=== PATIENT | male | born 1930 | race Caucasian/White ===

== ENCOUNTER 2016-09-01 04:06 | Emergency (ER) | payer MEDICARE, BC, OTHER ==
[~2016-09-01] VITALS: Ht 172.7 cm; Wt 73.5 kg
[~2016-09-01 04:06] MED LIST: AMLO1TAB PO; ASPI-482 PO; EZET10TA3 PO; OMEG1CAP2 PO; diovan PO
[2016-09-01 04:42] LABS: HEMOGLOBIN ISTAT 13.9 gm/dL; POTASSIUM ISTAT 3.8 mmol/L (3.5-5.0)
--- NOTE | 2016-09-01 04:52 | ED.ADGEN ---
Past History Past Medical History: A-Fib, Angina, High Cholesterol, Hypertension, Other Past Surgical History: Appendectomy, Other Smoking: Non-smoker Alcohol Use: Heavy Additional Alcohol Information: Daily wine and Jennifer Drug Use: None Adult General HPI HPI Patient is a 85 year old male with h/o afib s/p ablation who presents complaining of a "dull" chest pain that occurred more than 3 hours prior to arrival and lasted approx 30 min while undergoing an outpt sleep study. Pain resolved on its own. Denies any associated symptoms such as diaphoresis, dyspnea , n/v. Negative stress test in the past at an unknown date. Review of Systems Review of Systems Constitutional: Denies fever or chills [] Eyes: Denies change in visual acuity, redness, or eye pain [] HENT: Denies nasal congestion or sore throat [] Respiratory: Denies cough or shortness of breath [] Cardiovascular: No additional information not addressed in HPI [] GI: Denies abdominal pain, nausea, vomiting, bloody stools or diarrhea [] : Denies dysuria or hematuria [] Musculoskeletal: Denies back pain or joint pain [] Integument: Denies rash or skin lesions [] Neurologic: Denies headache, focal weakness or sensory changes [] Endocrine: Denies polyuria or polydipsia [] Allergies Allergies Allergies Coded Allergies Type Severity Reaction Last Updated Verified No Known Drug Allergies 06/15/13 No Physical Exam Physical Exam Constitutional: Well developed, well nourished, no acute distress, non-toxic appearance. [] HENT: Normocephalic, atraumatic, bilateral external ears normal, oropharynx moist, no oral exudates, nose normal. [] Eyes: PERRLA, EOMI, conjunctiva normal, no discharge. [] Neck: Normal range of motion, no tenderness, supple, no stridor. [] Cardiovascular:Heart rate regular rhythm, no murmur [] Lungs & Thorax: Bilateral breath sounds clear to auscultation [] Abdomen: Bowel sounds normal, soft, no tenderness, no masses, no pulsatile masses. [] Skin: Warm, dry, no erythema, no rash. [] Back: No tenderness, no CVA tenderness. [] Extremities: No tenderness, no cyanosis, no clubbing, ROM intact, no edema. [] Neurologic: Alert and oriented X 3, normal motor function, normal sensory function, no focal deficits noted. [] Psychologic: Affect normal, judgement normal, mood normal. [] Current Patient Data Vital Signs Vital Signs Date Time Temp Pulse Resp B/P Pulse Ox O2 Delivery O2 Flow Rate FiO2 09/01/16 05:25 87 16 130/70 94 Room Air 09/01/16 04:10 97.6 Lab Results Laboratory Tests Test 09/01/16 04:18 09/01/16 04:39 09/01/16 05:43 Prothrombin Time 10.7SEC (9.4-11.4) Prothrombin Time INR 1.0 (0.9-1.1) PTT 26SEC (23-33) POC Hemoglobin 13.9gm/dL POC Hematocrit 41% POC Sodium 138mmol/L (135-145) POC Potassium 3.8mmol/L (3.5-5.0) POC Chloride 101mmol/L (98-110) POC Total CO2 21mmol/L (23-32) L Anion Gap 21mmol/L (6-14) H POC Blood Urea Nitrogen 21mg/dL (8-26) POC Creatinine 1.2mg/dL (0.5-1.4) Glucose Level 97mg/dL (60-99) POC Ionized Calcium (Kristina) 1.15mmol/L (1.13-1.32) POC Troponin I 0.01ng/ml (<0.08) EKG EKG EKG interpreted by me, a regular rhythm, 100 bpm, no P-wave, no ST segment elevation, normal axis. [] Radiology/Procedures Radiology/Procedures Chest x-ray interpreted by me, no acute cardiopulmonary process. [] Course & Med Decision Making Course & Med Decision Making Pertinent Labs and Imaging studies reviewed. (See chart for details) The patient looks very well here in the emergency department. He expressed a strong desire to be discharged home if at all possible. We did observe him in the emergency department and obtain 2 negative troponins. He is being discharged home with instructions to contact his home care consultant later this morning. He will of course return emergency Department sooner if he develops any new or worsening symptoms. [] Final Impression Final Impression Chest pain [] Problems: Dragon Disclaimer Dragon Disclaimer This electronic medical record was generated, in whole or in part, using a voice recognition dictation system. BOUCHRA VILLEGAS MD Sep 01, 2016 04:52
--- NOTE | 2016-09-01 04:53 | EKG ---
[address] [address] Test Date: 2016-09-01 Test Time: 04:11:24 Pat Name: BEN PHELAN Department: Room: Gender: M [employer] Front Desk Clerk: : 1930 Requested By: BOUCHRA VILLEGAS Order Number: [id number] Reading MD: Measurements Intervals [place] Rate: 100 P: ID: QRS: 24 QRSD: 88 T: 45 QT: 374 QTc: 486 Interpretive Statements IRREGULAR RHYTHM, NO P-WAVE FOUND PROLONGED QT NO SPECIFIC ECG ABNORMALITIES RI6.01 Unconfirmed report No previous ECG available for comparison
[2016-09-01 05:25] VITALS: BP 130/70
--- NOTE | 2016-09-01 08:36 | RAD ---
Portable chest, 09/01/2016: History: Chest pain Comparison is made to a study from 08/17/2016. The heart size is normal. There is calcific plaquing of the aorta. The pulmonary vascularity is normal. A nodular shadow projected over the left base is compatible with a nipple shadow. No acute infiltrates are seen. There is no evidence of pleural fluid. IMPRESSION: No acute cardiopulmonary abnormality is detected.
== END 2016-09-01 06:18 | disposition home or self-care (01) ==
LOC: ER 04:06
DX: R07.89 Other chest pain (principal); I10 Essential (primary) hypertension; E78.00 Pure hypercholesterolemia, unspecified; I48.91 Unspecified atrial fibrillation; F10.10 Alcohol abuse, uncomplicated
CPT/HCPCS: 36415; 71010; 80047; 84484; 85610; 85730; 93005; 99285-25

== ENCOUNTER → 2016-12-29 | Outpatient (CLI) | payer MEDICARE, BC, OTHER ==
[~2016-12-29] MED LIST changes: +EZET10TA18 PO; -EZET10TA3 PO
--- NOTE | 2016-12-29 10:22 | RAD ---
INDICATION: ACUTE RT SHOULDER PAIN X 6 MTHS COMPARISON: None. IMPRESSION: Right shoulder: 3 views obtained without definite acute fracture or dislocation. Calcific atherosclerosis. Mild linear opacity right lower lung. Could be from atelectasis or scarring.
== END | disposition home or self-care (01) ==
LOC: DXRADRC 10:03
PROVIDERS: ATTEND Physician Assistant
DX: M25.511 Pain in right shoulder (principal); R91.8 Other nonspecific abnormal finding of lung field
CPT/HCPCS: 73030

== ENCOUNTER → 2017-02-20 | Outpatient (CLI) | payer MEDICARE, BC, OTHER ==
[2017-02-20 12:15] LABS: CALCIUM 9.2 mg/dL (8.5-10.1); GFR 70.5; POTASSIUM 4.1 mmol/L (3.5-5.1)
== END | disposition home or self-care (01) ==
LOC: LAB 11:48
PROVIDERS: ATTEND Internal Medicine Interventional Cardiology
DX: I48.1 Persistent atrial fibrillation (principal); I20.0 Unstable angina
CPT/HCPCS: 36415; 80048; 83735; 84484

== ENCOUNTER → 2017-08-07 | Outpatient (CLI) | payer MEDICARE, BC, OTHER ==
--- NOTE | 2017-08-07 14:14 | RAD ---
CT chest without contrast 08/07/2017 Clinical indication: Chronic cough. Comparison: CT chest 11/14/2011. Technique: Multiple CT images of the chest were obtained without contrast. PQRS Compliance Statement: One or more of the following individualized dose reduction techniques were utilized for this examination: 1. Automated exposure control 2. Adjustment of the mA and/or kV according to patient size 3. Use of iterative reconstruction technique Findings: Heart size is normal without significant pericardial effusion. Three-vessel coronary artery calcifications. The thoracic aorta is normal in caliber with heavy calcified atheromatous disease. No axillary, mediastinal or obvious hilar lymphadenopathy. The central airways are patent. Mild subpleural reticular opacities in the posterior lower lobes, right greater than left. No pleural effusion, pneumothorax or focal consolidation. No suspicious noncalcified pulmonary nodule. There are no destructive osseous lesions. Limited images of the upper abdomen: 2.2 cm peripheral hepatic segment 2 hypodensity series 2/image 87. Impression: 1. Bibasilar subpleural reticular opacities, may represent mild fibrosis. 2. Left hepatic hypodensity measuring 2.2 cm, increased from 2012 examination, likely benign. If further characterization is clinically indicated, MRI abdomen is recommended. 3. Three-vessel coronary artery calcifications.
== END | disposition home or self-care (01) ==
LOC: CT 11:19
PROVIDERS: ATTEND Physician Assistant
DX: I25.10 Atherosclerotic heart disease of native coronary artery without angina pectoris (principal); I70.0 Atherosclerosis of aorta; R91.8 Other nonspecific abnormal finding of lung field
CPT/HCPCS: 71250

== ENCOUNTER 2017-10-27 15:19 | Emergency (ER) | payer MEDICARE, BC, OTHER ==
[~2017-10-27] VITALS: Ht 170.2 cm; Wt 75.7 kg
[2017-10-27] MEDS ORDERED: MORPHINE SULFATE 4 MG/ML DISP.SYRIN. IM ONE (16:00)
--- NOTE | 2017-10-27 17:27 | RAD ---
RIGHT LOWER EXTREMITY ULTRASOUND WITH DOPPLER 10/27/2017 4:43 PM Clinical Information: Right foot and leg pain. Comparison: None available. Technique: Multiple grayscale, color Doppler, and spectral Doppler sonographic images of the lower extremity venous structures were obtained. Findings: The right common femoral, femoral, and popliteal veins exhibit normal compression, respiratory phasicity, and augmentation. No intraluminal thrombi are identified. Color Doppler flow is demonstrated in the right anterior tibial, posterior tibial, and peroneal veins. Greater saphenous vein is patent. Contralateral common femoral vein is patent. Impression: 1. No evidence of deep venous thrombosis. Electronically signed by: Frances Nj MD (10/27/2017 5:23 PM) [facility]
[2017-10-27] MEDS ORDERED: COLC0.6T34 PO (17:31)
[2017-10-27] MEDS ORDERED: HYDR-971 PO (17:31)
--- NOTE | 2017-10-27 17:32 | PHYS DOC ---
Past History Past Medical History: A-Fib, Angina, High Cholesterol, Hypertension, Other Past Surgical History: Appendectomy, Tonsillectomy, Other Smoking: Non-smoker Alcohol Use: Heavy Drug Use: None Adult General Chief Complaint Chief Complaint: FOOT PAIN HPI HPI 86-year-old male patient with history of gout complaining of right lateral ankle pain and redness since this morning. Patient states the pain getting force with movement and touching his ankle and took hydrocodone Physical improvement of his pain. Patient had history of atrial flutter ablation and currently taking intercourse and denies calf pain. Review of Systems Review of Systems Constitutional: Denies fever or chills [] Eyes: Denies change in visual acuity, redness, or eye pain [] HENT: Denies nasal congestion or sore throat [] Respiratory: Denies cough or shortness of breath [] Cardiovascular: No additional information not addressed in HPI [] GI: Denies abdominal pain, nausea, vomiting, bloody stools or diarrhea [] : Denies dysuria or hematuria [] Musculoskeletal: Denies back pain , reports joint pain [] Integument: Denies rash or skin lesions [] Neurologic: Denies headache, focal weakness or sensory changes [] Endocrine: Denies polyuria or polydipsia [] All other systems were reviewed and found to be within normal limits, except as documented in this note. Current Medications Current Medications Current Medications Medications (Trade) Dose Ordered Sig/Shantelle Start Time Stop Time Status Last Admin Dose Admin Morphine Sulfate (Morphine 4mg Syringe) 4 mg 1X ONCE 10/27/17 16:00 10/27/17 16:01 DC 10/27/17 15:59 4 MG Allergies Allergies Allergies Coded Allergies Type Severity Reaction Last Updated Verified No Known Drug Allergies 06/15/13 No Physical Exam Physical Exam Constitutional: Well developed, well nourished, mild distress, non-toxic appearance. [] HENT: Normocephalic, atraumatic Eyes: PERRLA, EOMI, conjunctiva normal, no discharge. [] Neck: Normal range of motion, no tenderness, supple, no stridor. [] Cardiovascular:Heart rate regular rhythm, no murmur [] Lungs & Thorax: Bilateral breath sounds clear to auscultation [] Extremities: Right ankle with edema and erythema and warmness in lateral malleolus painful range of motion without deformity Neurologic: Alert and oriented X 3, normal motor function, normal sensory function, no focal deficits noted. [] Psychologic: Affect normal, judgement normal, mood normal. [] Current Patient Data Vital Signs Vital Signs Date Time Temp Pulse Resp B/P (MAP) Pulse Ox O2 Delivery O2 Flow Rate FiO2 10/27/17 16:30 86 18 130/72 (91) 98 Room Air 10/27/17 15:30 98.2 EKG EKG [] Radiology/Procedures Radiology/Procedures [][address] [address] IMAGING REPORT Signed PATIENT: BEN PHELAN ACCOUNT: [id number] : 1930 LOCATION: ER AGE: 86 SEX: M EXAM STATUS: REG ER ORD. PHYSICIAN: JI CHAIREZ MD REASON: pain & erythema PROCEDURE: VENOUS LOWER EXTREMITY RIGHT RIGHT LOWER EXTREMITY ULTRASOUND WITH DOPPLER 10/27/2017 4:43 PM Clinical Information: Right foot and leg pain. Comparison: None available. Technique: Multiple grayscale, color Doppler, and spectral Doppler sonographic images of the lower extremity venous structures were obtained. Findings: The right common femoral, femoral, and popliteal veins exhibit normal compression, respiratory phasicity, and augmentation. No intraluminal thrombi are identified. Color Doppler flow is demonstrated in the right anterior tibial, posterior tibial, and peroneal veins. Greater saphenous vein is patent. Contralateral common femoral vein is patent. Impression: 1. No evidence of deep venous thrombosis. Electronically signed by: Conner Disla MD (10/27/2017 5:23 PM) [facility] DICTATED AND SIGNED BY: CONNER DISLA MD DATE: 10/27/17 [id number] CC: JI CHAIREZ MD; KASANDRA MONTES ~ Course & Med Decision Making Course & Med Decision Making Pertinent Imaging studies reviewed. (See chart for details) Evolution of patient in ER showed 86-year-old female patient with lateral malleolus pain and redness since this morning. The patient has history of gout and currently taking Eliquis. Patient treated with pain and felt better. Lower extremity ultrasound was unremarkable for DVT. I've spoken with the patient and/or caregivers. I've explained the patient's condition, diagnosis and treatment plan based on information available to me at this time. I've answered the patient's and/or caregivers questions and addressed any concerns. The patient and/or caregivers have a good understanding the patient's diagnosis, condition and treatment plan as can be expected at this point. Vital signs have been stabilized. The patient's condition is stable for discharge from the emergency department. The patient will pursue further outpatient evaluation with her primary care provider or other designated consulting physician as outlined in the discharge instructions. Patient and/or caregivers are agreeable to this plan of care and follow-up instructions have been explained in detail. The patient and/or caregivers have received these instructions in written format and expressed understanding of these discharge instructions. The patient and her caregivers are aware that if any significant change in condition or worsening of symptoms should prompt him to immediately return to this of the closest emergency department. If an emergent department is not readily available I would encourage him to call 911. [] Dragon Disclaimer Dragon Disclaimer This electronic medical record was generated, in whole or in part, using a voice recognition dictation system. Departure Departure: Impression: Primary Impression: Acute gouty arthritis Disposition: HOME, SELF-CARE (At 1728) Condition: IMPROVED Referrals: KASANDRA MONTES (PCP) Patient Instructions: Gout Additional Instructions: Follow-up with your primary care physician in 3-5 days Return to ER if not getting better Scripts Colchicine (COLCRYS) 0.6 Mg Tablet 1 TAB PO DAILY for 2 Days, #12 TAB 3 Refills Prov: JI CHAIREZ MD 10/27/17 Hydrocodone Bit/Acetaminophen (NORCO 5-325 TABLET) 1 Each Tablet 1 TAB PO PRN Q6HRS PRN for PAIN, #14 TAB 0 Refills Prov: JI CHAIREZ MD 10/27/17 JI CHAIREZ MD October 27, 2017 17:32
[2017-10-27 17:40] VITALS: BP 136/77
== END 2017-10-27 17:41 | disposition home or self-care (01) ==
LOC: ER 15:19
DX: M10.9 Gout, unspecified (principal); M25.571 Pain in right ankle and joints of right foot; I10 Essential (primary) hypertension; I48.91 Unspecified atrial fibrillation; E78.00 Pure hypercholesterolemia, unspecified
CPT/HCPCS: 93971; 96372; 99284; J2270

== ENCOUNTER 2018-01-02 16:03 | Emergency (ER) | payer MEDICARE, BC, OTHER ==
[~2018-01-02] VITALS: Ht 170.2 cm; Wt 75.7 kg
[~2018-01-02 16:03] MED LIST changes: +COLC0.6T34 PO; +HYDR-971 PO
[2018-01-02 16:15] VITALS: BP 113/91
--- NOTE | 2018-01-02 16:39 | RAD ---
Right hand and wrist radiograph 01/02/2018 4:03 PM INDICATION: Fall on hand this morning COMPARISON: Bilateral hand radiograph September 02, 2014 TECHNIQUE: 3 views of the right hand and 3 views the right wrist are provided. FINDINGS: There is no acute fracture or dislocation. There is a 1 mm ossific fragment between the base of the first and second metacarpal which is of uncertain significance. Mild widening of the scapholunate interval measuring up to 4 mm. Bone mineralization is within normal limits. Joint spaces are maintained. Regional soft tissues are within normal limits. There is no soft tissue gas or osseous erosion. IMPRESSION: No acute fracture or dislocation. There is a 1 mm ossific fragment between the base of the first and second metacarpal which is of uncertain significance. There is mild widening of the scapholunate interval measuring up to 4 mm. Electronically signed by: Frances Nj MD (01/02/2018 4:35 PM) [id number]
--- NOTE | 2018-01-02 16:57 | PHYS DOC ---
Past History Past Medical History: A-Fib, Angina, High Cholesterol, Hypertension, Other Past Surgical History: Appendectomy, Tonsillectomy, Other Smoking: Non-smoker Alcohol Use: Heavy Drug Use: None Adult General Chief Complaint Chief Complaint: HAND PROBLEM HPI HPI Patient is a [age] year old [sex] who presents with [] Review of Systems Review of Systems Constitutional: Denies fever or chills [] Eyes: Denies change in visual acuity, redness, or eye pain [] HENT: Denies nasal congestion or sore throat [] Respiratory: Denies cough or shortness of breath [] Cardiovascular: No additional information not addressed in HPI [] GI: Denies abdominal pain, nausea, vomiting, bloody stools or diarrhea [] : Denies dysuria or hematuria [] Musculoskeletal: Denies back pain or joint pain [] Integument: Denies rash or skin lesions [] Neurologic: Denies headache, focal weakness or sensory changes [] Endocrine: Denies polyuria or polydipsia [] All other systems were reviewed and found to be within normal limits, except as documented in this note. Allergies Allergies Allergies Coded Allergies Type Severity Reaction Last Updated Verified No Known Drug Allergies 06/15/13 No Physical Exam Physical Exam Constitutional: Well developed, well nourished, no acute distress, non-toxic appearance. [] HENT: Normocephalic, atraumatic, bilateral external ears normal, oropharynx moist, no oral exudates, nose normal. [] Eyes: PERRLA, EOMI, conjunctiva normal, no discharge. [] Neck: Normal range of motion, no tenderness, supple, no stridor. [] Cardiovascular:Heart rate regular rhythm, no murmur [] Lungs & Thorax: Bilateral breath sounds clear to auscultation [] Abdomen: Bowel sounds normal, soft, no tenderness, no masses, no pulsatile masses. [] Skin: Warm, dry, no erythema, no rash. [] Back: No tenderness, no CVA tenderness. [] Extremities: No tenderness, no cyanosis, no clubbing, ROM intact, no edema. [] Neurologic: Alert and oriented X 3, normal motor function, normal sensory function, no focal deficits noted. [] Psychologic: Affect normal, judgement normal, mood normal. [] Current Patient Data Vital Signs Vital Signs Date Time Temp Pulse Resp B/P (MAP) Pulse Ox O2 Delivery O2 Flow Rate FiO2 01/02/18 16:15 98.2 84 16 98 Room Air EKG EKG [] Radiology/Procedures Radiology/Procedures [] Course & Med Decision Making Course & Med Decision Making Pertinent Labs and Imaging studies reviewed. (See chart for details) [] Dragon Disclaimer Dragon Disclaimer This electronic medical record was generated, in whole or in part, using a voice recognition dictation system. Departure Departure: Impression: Primary Impression: Scapholunate dissociation Disposition: HOME, SELF-CARE Condition: STABLE Referrals: KASANDRA MONTES (PCP) Additional Instructions: Follow up with Dr. Benavidez in1-2 weeks: [address] [place] [address] Thank you for allowing us to participate in your care today. Return to the emergency department you have any new or worsening symptoms, or if you are concerned for any reason. Return to emergency department if you have any new or concerning symptoms including but not limited to fever, chills, nausea, vomiting, intractable pain, any new rashes, chest pain, shortness of air , uncontrolled bleeding, difficulty breathing, and/or vision loss. Follow up with your primary care physician within 3 days. Call your Primary Doctor tomorrow and inform them of your visit today. If you do not have a primary care provider we are happy to provide you with a list of our primary care providers contact information. This condition should be evaluated by your primary care physician and any recommended consulting services for continued management within 2-3 days after discharge. If at any time, you are having difficulty getting into your primary care doctor or a specialist, return to the emergency department. ERIC PAK MD Jan 02, 2018 16:57
[2018-01-02] MEDS ORDERED: ACETAMINOPHEN 325 MG TABLET PO ONE (17:00)
== END 2018-01-02 17:09 | disposition home or self-care (01) ==
LOC: ER 16:03
DX: S49.81XA Other specified injuries of right shoulder and upper arm, initial encounter (principal); W01.0XXA Fall on same level from slipping, tripping and stumbling without subsequent striking against object, initial encounter; Y93.89 Activity, other specified; Y99.8 Other external cause status; Y92.481 Parking lot as the place of occurrence of the external cause
CPT/HCPCS: 29125; 73110; 73130; 99284

== ENCOUNTER → 2018-05-16 | Outpatient (CLI) | payer MEDICARE, BC, OTHER ==
[~2018-05-16] MED LIST changes: +HYDR-3165 PO; -HYDR-971 PO
--- NOTE | 2018-05-17 07:56 | RAD ---
Chest, 2 views, 05/16/2018: HISTORY: Coughing up blood Comparison is made to studies from 09/01/2016 and 08/17/2016. The heart size is normal. There is moderate calcific plaquing of the aorta. There are linear and reticular opacities in the lung bases, worse on the right, probably predominantly due to fibrosis. These opacities have worsened slightly in the lateral right base. The upper lung damon are clear. No dense pulmonary consolidation is seen. There is no evidence of pleural fluid. IMPRESSION: 1. Aortic atherosclerosis. 2. Bibasilar parenchymal scarring. 3. Minimal opacity in the right lateral costophrenic angle has worsened slightly compatible with progressive fibrosis and/or minimal infiltrate. Electronically signed by: Darrian Armstrong MD (05/17/2018 7:52 AM) [facility]
== END | disposition home or self-care (01) ==
LOC: PMG 10:26
PROVIDERS: ATTEND Physician Assistant
DX: I70.0 Atherosclerosis of aorta (principal); R91.8 Other nonspecific abnormal finding of lung field
CPT/HCPCS: 71046